=== PATIENT | male | born 1955 | race Caucasian/White ===

== ENCOUNTER 2017-11-01 15:39 | Inpatient (IN) | payer OTHER ==
[~2017-11-01] VITALS: Ht 172.7 cm; Wt 88.9 kg
--- NOTE | 2017-11-01 16:38 | ED AMS/SEIZURE/WEAK/DIZZY ---
See Addendum History of Present Illness General Chief Complaint: Altered Mental Status Stated Complaint: BIBA WITH AMS Source: EMS Exam Limitations: unable to give history, confusion Vital Signs & Intake/Output Vital Signs & Intake/Output Vital Signs Date Time Temp Pulse Resp B/P B/P Pulse O2 O2 Flow FiO2 Mean Ox Delivery Rate 11/01 2000 97.5 77 18 120/74 99 Room Air 11/01 1757 97.2 62 20 118/56 98 Room Air 11/01 1603 95.0 98 20 192/102 99 Room Air Allergies Coded Allergies: No Known Allergies (11/01/17) Triage Note: PT BIBA FROM [facility]. PT WAS FOUND WALKING WITHOUT SHOES AND DISORIENTED. PT REMAINED DISORIENTED TO SITUATION. PT ABLE TO STATE YEAR AND DATE BUT THOUGHT HE WAS AT HOSPITAL TO GET "PIZZA". PT ALSO STATED HE WANTED TO LEAVE BECAUSE HE WAS AT THE HOSPITAL FOR "HOURS" BUT WAS ONLY PRESENT FOR A FEW MINUTES. PT HYPERTENSIVE. PT'S SPEECH CLEAR AND APPROPRIATE. 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 Triage Nurses Notes Reviewed? yes Unable To Obtain Hx Due To: patient confusion HPI: 61-year-old male with past medical history of hypertension, opioid abuse brought in by EMS after he was found altered wandering around a grocery store with no shoes. Patient is A&O 3 however he remains confused about the days events and is fighting staff. He believes he has been in the hospital for a very long time and wants to go home. He reports that he lives with his mother in [place]. He gave me permission to contact her and a phone number which is not a current or valid phone number. He reports that he is on methadone 25 mg daily which he obtains from [facility]. 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 He also states that he takes metoprolol for hypertension but has not taken that medication either. Patient is clearly altered and history is unreliable at this time. Patient has not been seen in [facility] before and no prior records are able to be obtained at this time. (Basilio LUNDBERG,Bryanna) Reconcile Medications Aspirin/Acetaminophen/Caffeine (Excedrin Extra Strength Caplet) 250 MG-250 MG-65 MG TABLET HEADACHES (Reported) Bupropion HCl (Bupropion XL) 300 MG TAB.ER.24H 1 TAB PO DAILY MENTAL HEALTH ( Reported) Finasteride 5 MG TABLET 1 TAB PO DAILY PROSTATE (Reported) Metoprolol Succ XL (Toprol XL) 100 MG TAB.ER.24H 1 TAB PO DAILY HEART/BP ( Reported) Naproxen Sodium (Aleve) 220 MG TABLET PAIN/INFLAMMATION (Reported) Simethicone (Gas-X) 125 MG CAPSULE 1 CAP PO AD PRN GAS (Reported) Tamsulosin HCl (Flomax) 0.4 MG CAP.ER.24H 1 CAP PO DAILY /PROSTATE ( Reported) (Nii Atkins DO) Past History Travel History Traveled to [place] past 21 day No Medical History Neurological: NONE EENT: NONE Cardiovascular: hypertension Respiratory: NONE Gastrointestinal: NONE Hepatic: NONE Renal: NONE Musculoskeletal: NONE Psychiatric: substance abuse Endocrine: NONE Blood Disorders: NONE Cancer(s): NONE Psychosocial History Who do you live with Mother Services at Home None What is your primary language Frisian Tobacco Use: Quit >30 days ago ETOH Use: denies use Illicit Drug Use: denies illicit drug use Family History Hx Contributory? No (Bryanna Richmond MD) Medical History Any Pertinent Medical History? see below for history Surgical History Surgical History: unobtainable (Nii Atkins DO) Review of Systems Review of Systems Constitutional: Reports: no symptoms. EENTM: Reports: see HPI. Respiratory: Reports: see HPI. Cardiovascular: Reports: see HPI. GI: Reports: see HPI. Genitourinary: Reports: see HPI. Musculoskeletal: Reports: see HPI. Skin: Reports: see HPI. Neurological/Psychological: Reports: see HPI. (Bryanna Richmond MD) Physical Exam Physical Exam General Appearance: alert, awake, anxious, severe distress, obese, patient in four point restraints as he was agitated and unwilling to stay in bed or room. He would not follow commands of staff. Head: atraumatic, normal appearance Eyes: Bilateral: normal appearance. Neck: normal inspection, supple Respiratory: normal breath sounds, chest non-tender, no respiratory distress Cardiovascular: regular rate/rhythm Gastrointestinal: normal bowel sounds, soft, non-tender Extremities: pedal edema Skin: warm/dry (Bryanna Richmond MD) Core Measures ACS in differential dx? No CVA/TIA Diagnosis No Sepsis Present: No Sepsis Focused Exam Completed? No (Wilbert DO,Nii L.) Progress Differential Diagnosis: alcohol intoxication, dehydration, drug intoxication, hypoxia, intracranial Hem., UTI/pyelo Plan of Care: Orders Procedure Date/time Status Nothing by Mouth 11/02 B Active VRE ACTIVE SURVIELLANCE 11/01 2030 Active ACTIVE SURVEILLANCE NARES 11/01 2030 Active Pathway - chart 11/01 2025 Active House Staff 11/01 2025 Active Code Status 11/01 2025 Active Pathway - chart 11/01 195 Active Weight 11/01 194 Active Vital Signs 11/01 194 Active Turn and Reposition 11/01 1942 Active Teach/Educate 11/01 1942 Active Skin Integrity Protocol 11/01 1942 Active Skin/Pressure Ulcer Assess (Sk 11/01 1942 Active Precautions 11/01 1942 Active Pain Treatment and Response 11/01 1942 Active Nutritional Intake, Monitor 11/01 1942 Active Isolation 11/01 1942 Active CIWA 11/01 1942 Active Patient Care Conference 11/01 1942 Active Activity/Ambulation 11/01 194 Active SODIUM 11/01 192 Complete URINE DRUGS OF ABUSE 11/01 191 Complete Restraint- Discontinue 11/01 1900 Active Restraint- Behavioral (Order) 11/01 1817 Active Patient Data 11/01 1813 Active Add-on Test (ER Only) 11/01 1748 Active CULTURE,URINE 11/01 1748 Active URINE OSMOLALITY 11/01 1748 Complete URINE LYTES, SPOT 11/01 1748 Complete URINALYSIS 11/01 1748 Complete BLOOD CULTURE 11/01 1747 Active ED Holding Orders 11/01 1745 Active Admit to inpatient 11/01 1745 Active Vital Signs 11/01 1745 Active Code Status 11/01 1745 Complete Restraint- Behavioral (Order) 11/01 1637 Active ACETOMINOPHEN 11/01 1635 Complete TROPONIN LEVEL 11/01 1635 Complete SALICYLATE 11/01 1635 Complete ETHANOL 11/01 1635 Complete COMPREHENSIVE METABOLIC PANEL 11/01 1635 Complete CBC WITHOUT DIFFERENTIAL 11/01 1635 Complete EKG 11/01 1635 Active Intake & Output 11/01 1557 Active VTE Mechanical Prophylaxis 11/01 UNK Active Vital Signs 11/01 UNK Active Continuous Observation Monitor 11/01 UNK Active Current Medications Sig/Sheng Start time Last Medication Dose Stop Time Status Admin Sodium Chloride 1,000 ML .Q24H 11/01 2045 CAN (Normal Saline 0.9%) Sodium Chloride 1,000 ML .Q24H 11/01 2029 AC (Normal Saline 0.9%) Lorazepam 2 MG ONE ONE 11/01 1714 CAN (Ativan) 11/01 171 Laboratory Tests 11/01/17 1932: 11/01/171911: Urine Opiates Screen 2377.00 H, Methadone Screen > 735 H, Barbiturate Screen < 60, Ur Phencyclidine Scrn < 6.00, Amphetamines Screen < 100, U Benzodiazepines Scrn < 85, Urine Cocaine Screen < 50, Urine Cannabis Screen < 5.00, Urine Color YEL, Urine Clarity CLEAR, Urine pH 7.0, Ur Specific [place] 1.010, Urine Protein NEG, Urine Ketones TRACE H, Urine Nitrite NEG, Urine Bilirubin NEG, Urine Urobilinogen 0.2, Ur Leukocyte Esterase NEG, Ur Microscopic SEDIMENT EXAMINED, Urine RBC RARE, Urine WBC RARE, Ur Epithelial Cells RARE, Urine Mucus RARE, Urine Hemoglobin TRACE-INTACT H, Urine Glucose NEG 11/01/171911: Methadone Screen Cancelled, Barbiturate Screen Cancelled, Ur Phencyclidine Scrn Cancelled, Amphetamines Screen Cancelled, U Benzodiazepines Scrn Cancelled, Urine Cocaine Screen Cancelled, Urine Cannabis Screen Cancelled, Urine Osmolality 218 L, Ur Random Creatinine 30.7, Ur Random Sodium 30, Ur Random Potassium 24.9, Fraction Sodium Excret 0.5 11/01/17 1641: Anion Gap 11, Estimated GFR > 60, BUN/Creatinine Ratio 18.3, Glucose 96, Calcium 9.0, Total Bilirubin 1.6 H, AST 79 H, ALT 46, Alkaline Phosphatase 73, Troponin I < 0.01, Total Protein 6.9, Albumin 4.3, Globulin 2.6, Albumin/ Globulin Ratio 1.7, CBC w Diff NO MAN DIFF REQ, RBC 4.44 L, MCV 88.0, MCH 30.6, MCHC 34.8, RDW 12.7, MPV 8.3, Gran % 78.9 H, Lymphocytes % 11.6 L, Monocytes % 9.4 H, Eosinophils % 0, Basophils % 0.1, Absolute Granulocytes 13.8 H, Absolute Lymphocytes 2.0, Absolute Monocytes 1.6 H, Absolute Eosinophils 0, Absolute Basophils 0, Salicylates 3.0, Acetaminophen < 10.0 L, Serum Alcohol < 10.0 Microbiology 11/01 2029 UPPER RESP: Surveillance Culture - ORD 11/01 2029 GI: Surveillance Culture - ORD 11/01 191 URINE ROUT: Urine Culture - RECD 11/01 1800 BLOOD: Blood Culture - RECD 11/01 1746 BLOOD: Blood Culture - RECD Comments: 61 year old male found altered outside a grocery store barefoot. Will order the following: CBC, CMP, ASA level, Tylenol level, EKG, trop, Utox, Etoh level. Patient in 4 point restraints placed at 16:05. Will need to sedate to obtain CT head to rule out acute head injury. No contacts available or known at this time to obtain history. (Bryanna Richmond MD) Initial ED EKG: NSR (Nii Atkins DO) Departure Departure Condition: Stable Departure Forms: Customer Survey General Discharge Information (Basilio LUNDBERG,Bryanna) Departure Disposition: STILL A PATIENT Clinical Impression Primary Impression: Hyponatremia Secondary Impressions: Altered mental status Admission Note Spoke With: Raad LUNDBERG,Veronika Documentation of Exam: Documentation of any treatments & extenuating circumstances including Concerns Regarding Discharge (functional status, medication knowledge or non-compliance, living conditions, etc.) that warrant an admission rather than observation: [The patient needs admission for neurological evaluations every 4 hours, ICU level care, strict I's and O's, correction of hyponatremia, nephrology consultation. Nephrology was paged and informed that the patient was being admitted to the ICU. (Nii Atkins DO)
[2017-11-01 16:47] LABS: ABSOLUTE BASOPHIL COUNT 0 /CUMM (0.0-0.2); ABSOLUTE EOSINOPHIL COUNT 0 /CUMM (0.0-0.7); ABSOLUTE GRANULOCYTE CT 13.8 /CUMM (1.4-6.5); ABSOLUTE MONOCYTE COUNT 1.6 /CUMM (0.10-0.60); BASOPHIL % 0.1 % (0.0-2.0); EOSINOPHIL % 0 % (0-5); GRANULOCYTE % 78.9 % (42.2-75.2); HEMATOCRIT 39.1 % (42-52); MEAN CORPUSCULAR HGB 30.6 PG (27.0-31.0); MEAN CORPUSCULAR HGB CONC 34.8 G/DL (33.0-37.0); MEAN PLATELET VOLUME 8.3 FL (7.4-10.4); PLATELET COUNT 347 /CUMM (130-400); RBC DISTRIBUTION WIDTH 12.7 % (11.5-14.5); RED BLOOD CELL CT 4.44 /CUMM (4.70-6.10); WHITE BLOOD CELL COUNT 17.5 /CUMM (4.8-10.8)
[2017-11-01] MEDS ORDERED: TOPROL XL100 M1 PO (17:38)
[2017-11-01] MEDS ORDERED: GAS-X125 MG PO (17:39)
[2017-11-01] MEDS ORDERED: FINASTERIDE5 M1 PO (17:39)
[2017-11-01] MEDS ORDERED: ALEVE220 M2 PO (17:40)
[2017-11-01] MEDS ORDERED: BUPROPION XL300 M1 PO (17:40)
[2017-11-01] MEDS ORDERED: EXCEDRIN EXTRA1 EACH PO (17:41)
[2017-11-01] MEDS ORDERED: FLOMAX0.4 M1 PO (17:42)
--- NOTE | 2017-11-01 18:26 | History & Physical ---
Agusto Gamboa 11/01/17 1825: General Information and HPI MD Statement: I have seen and personally examined FE WALTERS and documented this H&P. The patient is a 61 year old M who presented with a patient stated chief complaint of [altered mental status]. Source of Information: old records, EMS, ed staff Exam Limitations: unable to give history, poor historian History of Present Illness: 61-year-old gentleman past medical history significant for hypertension, opioid abuse brought in by ambulance after police was called when he was found wandering around a grocery store without any shoes on. Patient has not been seen in [facility] before and no prior records are able to be obtained at this time. On my interview interview patient was incomprehensible however was noted to be agitated as well. Allergies/Medications Allergies: Coded Allergies: No Known Allergies (11/01/17) Home Med list Aspirin/Acetaminophen/Caffeine (Excedrin Extra Strength Caplet) 250 MG-250 MG-65 MG TABLET HEADACHES (Reported) Bupropion HCl (Bupropion XL) 300 MG TAB.ER.24H 1 TAB PO DAILY MENTAL HEALTH ( Reported) Finasteride 5 MG TABLET 1 TAB PO DAILY PROSTATE (Reported) Metoprolol Succ XL (Toprol XL) 100 MG TAB.ER.24H 1 TAB PO DAILY HEART/BP ( Reported) Naproxen Sodium (Aleve) 220 MG TABLET PAIN/INFLAMMATION (Reported) Simethicone (Gas-X) 125 MG CAPSULE 1 CAP PO AD PRN GAS (Reported) Tamsulosin HCl (Flomax) 0.4 MG CAP.ER.24H 1 CAP PO DAILY /PROSTATE ( Reported) Compliance With Home Meds: UNKNOWN Past History Travel History Traveled to [place] past 21 day No Medical History Neurological: NONE EENT: NONE Cardiovascular: hypertension Respiratory: NONE Gastrointestinal: NONE Hepatic: NONE Renal: NONE Musculoskeletal: NONE Psychiatric: substance abuse Endocrine: NONE Blood Disorders: NONE Cancer(s): NONE Surgical History Surgical History: unobtainable Past Family/Social History Psychosocial History Services at Home: None ETOH Use: denies use Illicit Drug Use: denies illicit drug use Review of Systems Review of Systems Constitutional: Denies: see HPI. Exam & Diagnostic Data Last 24 Hrs of Vital Signs/I&O Vital Signs Date Time Temp Pulse Resp B/P B/P Pulse O2 O2 Flow FiO2 Mean Ox Delivery Rate 11/01 2000 97.5 77 18 120/74 99 Room Air 11/01 1757 97.2 62 20 118/56 98 Room Air 11/01 1603 95.0 98 20 192/102 99 Room Air Intake & Output 11/01 1600 11/01 0800 11/01 0000 Intake Total Output Total Balance Patient 220 lb Weight Physical Exam General Appearance Mild Distress, uncooperative, unkept Skin bruising noted on arms, ? track nelson on right cubital area HEENT PERRLA, Mucous Membr. moist/pink, small pupils Lymphatic Cervical nl Cardiovascular Regular Rate, Normal S1, Normal S2 Lungs Normal Air Movement Abdomen Normal Bowel Sounds, Soft, No Tenderness Extremities No Edema Last 24 Hrs of Labs/Danish: Laboratory Tests 11/01/171931: 11/01/171911: Urine Opiates Screen 2377.00 H, Methadone Screen > 735 H, Barbiturate Screen < 60, Ur Phencyclidine Scrn < 6.00, Amphetamines Screen < 100, U Benzodiazepines Scrn < 85, Urine Cocaine Screen < 50, Urine Cannabis Screen < 5.00, Urine Color YEL, Urine Clarity CLEAR, Urine pH 7.0, Ur Specific [place] 1.010, Urine Protein NEG, Urine Ketones TRACE H, Urine Nitrite NEG, Urine Bilirubin NEG, Urine Urobilinogen 0.2, Ur Leukocyte Esterase NEG, Ur Microscopic SEDIMENT EXAMINED, Urine RBC RARE, Urine WBC RARE, Ur Epithelial Cells RARE, Urine Mucus RARE, Urine Hemoglobin TRACE-INTACT H, Urine Glucose NEG 11/01/171911: Methadone Screen Cancelled, Barbiturate Screen Cancelled, Ur Phencyclidine Scrn Cancelled, Amphetamines Screen Cancelled, U Benzodiazepines Scrn Cancelled, Urine Cocaine Screen Cancelled, Urine Cannabis Screen Cancelled, Urine Osmolality 218 L, Ur Random Creatinine 30.7, Ur Random Sodium 30, Ur Random Potassium 24.9, Fraction Sodium Excret 0.5 11/01/17 1641: Anion Gap 11, Estimated GFR > 60, BUN/Creatinine Ratio 18.3, Glucose 96, Calcium 9.0, Total Bilirubin 1.6 H, AST 79 H, ALT 46, Alkaline Phosphatase 73, Troponin I < 0.01, Total Protein 6.9, Albumin 4.3, Globulin 2.6, Albumin/ Globulin Ratio 1.7, CBC w Diff NO MAN DIFF REQ, RBC 4.44 L, MCV 88.0, MCH 30.6, MCHC 34.8, RDW 12.7, MPV 8.3, Gran % 78.9 H, Lymphocytes % 11.6 L, Monocytes % 9.4 H, Eosinophils % 0, Basophils % 0.1, Absolute Granulocytes 13.8 H, Absolute Lymphocytes 2.0, Absolute Monocytes 1.6 H, Absolute Eosinophils 0, Absolute Basophils 0, Salicylates 3.0, Acetaminophen < 10.0 L, Serum Alcohol < 10.0 Microbiology 11/01 2029 UPPER RESP: Surveillance Culture - ORD 11/01 2029 GI: Surveillance Culture - ORD 11/01 191 URINE ROUT: Urine Culture - RECD 11/01 1799 BLOOD: Blood Culture - RECD 11/01 1745 BLOOD: Blood Culture - RECD Diagnostic Data EKG Results NSR HR 64, QTc 454 type 1 HB CXR Results SERVICE DATE: 11/01/17 EXAM TYPE: RAD - XRY-PORTABLE CHEST XRAY FINDINGS: Both lungs are well-expanded and clear of acute process. The heart size and pulmonary vascularity is normal. No gross bony abnormality seen. IMPRESSION: Unremarkable chest exam. Other Results SERVICE DATE: 11/01/17 EXAM TYPE: CAT - CT HEAD WO IV CONTRAST FINDINGS: There is no acute intracranial hemorrhage or abnormal extra-axial collection. No intracranial mass effect or midline shift. Lateral and third ventricles are proportionate to the subarachnoid spaces. No hydrocephalus. Escalante-white matter differentiation is grossly preserved and there is no evidence of acute territorial infarct. The calvarium and skull base are intact. Mastoid air cells and middle ear cavities are well aerated. Visualized paranasal sinuses are well aerated. IMPRESSION: Unremarkable brain MRI. No evidence acute territorial infarct or hemorrhage. Assessment/Plan Assessment: 61-year-old gentleman past medical history significant for hypertension, substance abuse disorder on methadone brought in altered by police. In ED was found to be hyponatremic to 118 with leukocytosis of 17.5 with no bandemia. UA clear. U tox significant for opioids and methadone. CT head shows no acute intracranial hemorrhage or abnormal extra-axial collection. No intracranial mass effect or midline shift. Chest x-ray unremarkable Problem list: hypotonic Hyponatremia Altered mental status Leukocytosis, unclear etiology likely reactive, currently afebrile Substance abuse disorder Plan: Admit to ICU, vitals per protocol will try to increase sodium by 0.5 mL/h (4-6/3 hours) Keep n.p.o. for now holding all his medications, please reassess in the morning There is no next of kin contact for him in our system Initially wanted to start the patient on hypertonic solution. However patient got normal saline in the ED his sodium corrected to 122. Will start normal saline KVO, once he is more awake will place him on 800 mL fluid restriction Clinically looks euvolemic, serum osmolality 259, with low urine osmolality 218 , urine sodium 30, feNa of 0.5, hypouricemia, hypotonic hyponatremia likely secondary to SIADH ,review of his medications show no clear culprit. There has been some case reports of bupropion causing hyponatremia. Will hold all medications for now, please confirm his medications in the morning Regarding his leukocytosis patient is afebrile right now will follow up with antibiotics if he spikes a fever will cover him empirically. DVT prophylaxis subcu Lovenox Patient is full code please reassess CODE STATUS when he is more awake As Ranked By This Provider Problem List: 1. Hyponatremia 2. Altered mental status Core Measures/Misc (11/05) Acute Coronary Syndrome ACS Diagnosis: No Congestive Heart Failure Congestive Heart Failure Diagnosis No Cerebrovascular Accident CVA/TIA Diagnosis: No VTE (View Protocol) VTE Risk Factors Acute Medical Illness No Mechanical VTE Prophylaxis d/t N/A MechProphylax Ordered No VTE Pharm Prophylaxis d/t NA PharmProphylax ordered Sepsis (View protocol) Sepsis Present: No If YES complete Sepsis Event Note If YES complete Sepsis Event Note Jen LUNDBERG,Abigail Cat 11/01/17 1852: Core Measures/Misc (11/05) Sepsis (View protocol) If YES complete Sepsis Event Note If YES complete Sepsis Event Note Attending MD Review Statement Attending Statement Attending MD Statement: examined this patient, discuss w/resident/PA/DEPUTY SHERIFF CUSTODY, agreed w/resident/PA/DEPUTY SHERIFF CUSTODY, reviewed EMR data (avail), reviewed images, amended to note Attending Assessment/Plan: Briefly, the patient is a 61-year-old male with past medical history significant for hypertension and opioid abuse. The patient was brought in by EMS after he was found altered wandering in a store with no shoes. The patient was agitated in the ED and required restraints. In the ED, the patient was not able to give a clear history. It was reported that he takes methadone 25 mg daily which he obtains from a [facility] but had not gone to take his medication today. He also takes metoprolol for hypertension but had not taken that medication either. The patient was further evaluated in the emergency room, noting he had a white blood cell count of 17,000 and a serum sodium of 118. His total bilirubin was 1.6. The patient was initially hypertensive which readily improved. The patient was very agitated and required restraint, noting he was given Ativan and Benadryl with improvement in his agitation. A chest x-ray was done and was unremarkable. The patient's case was discussed with nephrology. He is currently receiving hypertonic saline. The cause of his hyponatremia remains unclear, and the complete workup as recommended by nephrology is pending. The patient has been planned cultured. A urinalysis has been ordered and is pending. We will start the patient on antibiotics if there is any source of infection identified. Plan: * Hypertonic saline administration as recommended by nephrology. * Will replace serum sodium until PRODUCTION OPERATIONS INSPECTOR symptoms improve. * Electrolytes will be monitored every 4 hours, we will avoid rapid correction of sodium. * Follow-up urinalysis results. * Follow-up cultures. * Will start empiric antibiotics if the urinalysis is abnormal or if there is any evidence of infection. * Check a right upper quadrant ultrasound. * Please ensure the toxicology screen is completed. * Check a head CT if able. * Check a prolactin level. * Monitor for seizure activity/neurological events. * DVT prophylaxis with Venodyne's at all times until head CT is checked. * Monitor closely in the critical care unit. * I discussed the plan of care with the housestaff in detail.
--- NOTE | 2017-11-01 18:31 | RADIOLOGY REPORT ---
EXAMINATION: XR PORTABLE CHEST CLINICAL INFORMATION: AMS. COMPARISON: None TECHNIQUE: Portable frontal view of the chest was obtained. FINDINGS: Both lungs are well-expanded and clear of acute process. The heart size and pulmonary vascularity is normal. No gross bony abnormality seen. IMPRESSION: Unremarkable chest exam.
--- NOTE | 2017-11-01 19:15 | CT SCAN REPORT ---
EXAMINATION: CT HEAD WITHOUT CONTRAST CLINICAL INFORMATION: Altered mental status. COMPARISON: No relevant prior imaging. TECHNIQUE: Contiguous axial imaging was performed from the skull base to vertex without intravenous administration of contrast. DLP: 1642.88 mGy-cm FINDINGS: There is no acute intracranial hemorrhage or abnormal extra-axial collection. No intracranial mass effect or midline shift. Lateral and third ventricles are proportionate to the subarachnoid spaces. No hydrocephalus. Escalante-white matter differentiation is grossly preserved and there is no evidence of acute territorial infarct. The calvarium and skull base are intact. Mastoid air cells and middle ear cavities are well aerated. Visualized paranasal sinuses are well aerated. IMPRESSION: Unremarkable brain MRI. No evidence acute territorial infarct or hemorrhage.
[2017-11-01 21:00] VITALS: BP 140/72
[2017-11-01 22:00] VITALS: BP 105/64
[2017-11-01 23:00] VITALS: BP 124/70
[2017-11-02] VITALS (8 sets, daily range): BP systolic 120–155; BP diastolic 64–82
[2017-11-02 05:45] LABS: ABSOLUTE BASOPHIL COUNT 0.1 /CUMM (0.0-0.2); ABSOLUTE EOSINOPHIL COUNT 0 /CUMM (0.0-0.7); ABSOLUTE GRANULOCYTE CT 8.1 /CUMM (1.4-6.5); ABSOLUTE LYMPH COUNT 1.9 /CUMM (1.2-3.4); ABSOLUTE MONOCYTE COUNT 1.5 /CUMM (0.10-0.60); BASOPHIL % 0.4 % (0.0-2.0); EOSINOPHIL % 0.2 % (0-5); GRANULOCYTE % 69.5 % (42.2-75.2); MEAN CORPUSCULAR HGB 30.5 PG (27.0-31.0); MEAN CORPUSCULAR HGB CONC 34.1 G/DL (33.0-37.0); MEAN CORPUSCULAR VOLUME 89.5 FL (80.0-94.0); MEAN PLATELET VOLUME 7.9 FL (7.4-10.4); PLATELET COUNT 303 /CUMM (130-400); RBC DISTRIBUTION WIDTH 12.9 % (11.5-14.5); RED BLOOD CELL CT 4.36 /CUMM (4.70-6.10); WHITE BLOOD CELL COUNT 11.7 /CUMM (4.8-10.8)
--- NOTE | 2017-11-02 07:37 | PN- Resident CRCU ---
Subjective HPI/CRCU Issues: Hyponatremia (118 on admission) s/p hypertonic saline 24 Hour Events: Overnight patient was agitated, attempted to leave; order #7 was called and patient was escorted back to bed, 1:1 sitter ordered. Was in restraints in ED, off restraints at this time. Patient has poor insight into diagnosis, continues to ask why he is here and saying he wants to leave. States that he was in [facility] in the beginning of the week for "appendicitis" although did not have an operation, was "unable to eat or drink anything" for two days and was discharged on Sunday without follow up or medications. States that last night he was in a hotel with his girlfriend and apparently she wanted pizza, so he went out in his boxers without shoes on to get pizza. Unsure as to why police found him rummaging through cars, states that "that never happened". Per discussion with nursing, patient states that "I was not rummaging through cars, I just got into the wrong subaru". Patient states that he feels as though his sodium is fine and continues to ask to leave, educated on risks of hyponatremia and states he will stay. His sodium has increased from 118-128, and was placed on D5W to avoid overcorrection. Objective Vital Signs & I&O Last 8 Hrs of Vitals and I&O: Intake & Output 11/02 0800 Intake Total 179 Output Total 1000 Balance -821 Intake, IV 59 Intake, Oral 120 Number 0 Bowel Movements Output, Urine 1000 Exam General Appearance: well developed/nourished, no apparent distress, alert, awake , comfortable Head: atraumatic Ears, Nose, Throat: normal pharynx Respiratory: normal breath sounds, lungs clear Cardiovascular: regular rate/rhythm, normal peripheral pulses Gastrointestinal: soft, non-tender Extremities: normal inspection Cranial Nerves: normal speech Skin: intact Skin Temp/Moisture Exam: Warm/Dry Sepsis Skin Exam (color): Normal for Ethnicity Current Medications: Current Medications Sig/Sheng Start time Last Medication Dose Route Stop Time Status Admin Dextrose/Water 1,000 ML Q8H 11/02 0730 AC 11/02 IV 0750 Diphenhydramine HCl 50 MG ONCE ONE 11/01 1730 DC 11/01 IM 11/01 1731 1732 Diphenhydramine HCl 0 .STK-MED ONE 11/01 1729 DC .ROUTE Lorazepam 2 MG ONE ONE 11/01 1730 DC 11/01 IV 11/01 1731 1732 Lorazepam 2 MG ONE ONE 11/01 1715 CAN IV 11/01 1716 Lorazepam 0 .STK-MED ONE 11/01 1713 DC .ROUTE Methadone HCl 25 MG DAILY 11/02 09 AC 11/02 PO 1000 Sodium Chloride 1,000 ML .Q24H 11/01 2045 CAN IV Sodium Chloride 1,000 ML .Q24H 11/01 2030 DC 11/01 IV 2100 Sodium Chloride 500 ML ONCE ONE 11/01 1845 DC 11/01 IV 11/02 0059 1945 Sodium Chloride 1,000 ML Q10H 11/01 1715 DC 11/01 IV 1732 Impression/Plan Impression/Problem List Impression: Mr Denise is a 61M with a PMH of polysubstance abuse on Methadone 25mg daily, HTN brought in by police in altered state, found to have sodium of 118 on admission and confusion and aggression, given these findings thought to be symptomatic hyponatremia and so brought to ICU for hypertonic saline administration, now with sodium of 128 on D5W to prevent overcorrection. Respiratory: stable -Stable on room air Infectious Disease: -Did have leukocytosis on admission trending down, afebrile, likely reactive -Will monitor off abx; cultures were drawn on admission -If febrile or symptomatic will start abx Cardiovascular/Circulation: stable -NSR+SB on monitor, blood pressures stable Hematological: stable -H/H 13.3/39.0 Metabolic: hypotonic hyponatremia -Sodium at 131 at 10:00am, D5W rate increased -Pending 2pm sodium, sodium q4 -Nephro recs appreciated -Mild transaminitis will monitor with ICU bundle, scheduled for RUQ ultrasound but cancelled due to patient eating; will plan on tomorrow AM potential NPO overnight -Tox positive for opiates, methadone, serum alcohol negative on admission -Restarted on his methadone dose 25mg, called [facility] in [place] and spoke with patients nurse who administers his dose; last dose was on the . Patient had claimed he was taking 45mg of methadone. -Per [place], patient has large amount of benzos prescribed (Lorazepam 2mg 120 pills for 30 days), will monitor for withdrawal Alimentary: -Regular diet, fluid restricted Neurologic: -Intact, on 1:1 sitter -Occasionally agitated, but has not been on restraints today -Psych consult placed given bizarre patient behavior and patient following outpatient psychiatrist, remea lyons Nephro: -Stable We are currently holding patient meds, will call patients pharmacy to confirm meds and restart tomorrow. DVT PPX IV access Full Code Problem List: 1. Hyponatremia 2. Altered mental status Pain Ratin Tomorrow's Labs & Rationales: CBC, BEP Plan DVT/Prophylaxis: mechanical
--- NOTE | 2017-11-02 09:03 | Admission Certification ---
Admission Certification Certification Statement - As attending physician, I certify that at the time of - admission, based on clinical presentation, severity of - symptoms, need for further diagnostic testing and - therapeutic interventions, and risk of adverse outcomes - without in-hospital treatment, in my clinical assessment, - this patient requires an acute hospital stay for a minimum - of two nights or longer. I have also considered psychsocial - factors such as support system, advanced age, financial - issues, cognitive issues, and failed out-patient treatments, - past re-admission history, safety of patient, and lack of - compliance as applicable. Specific rationale supporting this admission is: Acute mental status change and confusion, severe hyponatremia which requires hypertonic saline, IV fluid management, and careful electrolyte management. The patient will require ICU monitoring for his critical illness.
--- NOTE | 2017-11-02 09:15 | PN- CRCU ---
Abigail Li MD 11/02/17 0903: Subjective HPI/Critical Care Issues: The patient is awake and remains agitated. He is not restrained but requires a one-to-one sitter. He is angry and states he wants to go home. He is confabulating. He has told multiple stories about why he was admitted to the hospital. He cannot recall the details. He denies taking any prescribed or illicit drugs. The patient's respiratory status is stable noting he is on room air. He is hemodynamically stable as well and afebrile. The patient now has adequate oral intake. His serum sodium has increased from 118-128 this morning. He was changed over to D5W to prevent overcorrection of serum sodium levels. Objective Current Medications: Current Medications Sig/Sheng Start time Last Medication Dose Route Stop Time Status Admin Dextrose/Water 1,000 ML Q8H 11/02 0730 AC IV Diphenhydramine HCl 50 MG ONCE ONE 11/01 1730 DC 11/01 IM 11/01 1731 1732 Diphenhydramine HCl 0 .STK-MED ONE 11/01 1729 DC .ROUTE Lorazepam 2 MG ONE ONE 11/01 1730 DC 11/01 IV 11/01 1731 1732 Lorazepam 2 MG ONE ONE 11/01 1715 CAN IV 11/01 1716 Lorazepam 0 .STK-MED ONE 11/01 1713 DC .ROUTE Sodium Chloride 1,000 ML .Q24H 11/01 2045 CAN IV Sodium Chloride 1,000 ML .Q24H 11/01 2030 DC 11/01 IV 2100 Sodium Chloride 500 ML ONCE ONE 11/01 1845 DC 11/01 IV 11/02 0059 1945 Sodium Chloride 1,000 ML Q10H 11/01 1715 DC 11/01 IV 1732 Vital Signs & I&O Last 24 Hrs of Vitals and I&O: Vital Signs Date Time Temp Pulse Resp B/P B/P Pulse O2 O2 Flow FiO2 Mean Ox Delivery Rate 11/02 0600 83 20 120/76 11/02 0400 96.9 68 22 141/64 11/02 0000 96.2 56 21 124/70 11/02 0000 97 Room Air Room Air 11/01 2300 96.2 56 21 124/70 97 Room Air 11/01 2200 57 16 105/64 11/01 2100 96.9 62 22 140/72 11/01 2100 97 Room Air 11/01 2000 97.5 77 18 120/74 99 Room Air 11/01 1757 97.2 62 20 118/56 98 Room Air 11/01 1603 95.0 98 20 192/102 99 Room Air Intake & Output 11/02 1600 11/02 0800 11/02 0000 Intake Total 179 510 Output Total 1000 850 Balance -821 -340 Intake, IV 59 510 Intake, Oral 120 Number 0 0 Bowel Movements Output, Urine 1000 850 Patient 203 lb Weight Weight Bed scale Measurement Method Physical Exam General Appearance agitated, uncooperative Skin bruising noted on arms, ? track nelson on right cubital area HEENT PERRLA, Mucous Membr. moist/pink Lymphatic Cervical nl Cardiovascular Regular Rate, Normal S1, Normal S2 Lungs Normal Air Movement Abdomen Normal Bowel Sounds, Soft, No Tenderness Extremities No Edema Results Last 24 Hrs of Lab Results: Laboratory Tests 11/02/17 0519: Anion Gap 10, Estimated GFR > 60, Glucose 93, Calcium 8.8, Phosphorus 3.1, Magnesium 2.2, Total Bilirubin 1.3, AST 73 H, ALT 47, Albumin 3.9, CBC w Diff NO MAN DIFF REQ, RBC 4.36 L, MCV 89.5, MCH 30.5, MCHC 34.1, RDW 12.9, MPV 7.9, Gran % 69.5, Lymphocytes % 16.7 L, Monocytes % 13.2 H, Eosinophils % 0.2, Basophils % 0.4, Absolute Granulocytes 8.1 H, Absolute Lymphocytes 1.9, Absolute Monocytes 1.5 H, Absolute Eosinophils 0, Absolute Basophils 0.1 11/02/17 0017: Anion Gap 10, Estimated GFR > 60, Glucose 79, Calcium 8.9, Phosphorus 3.5, Magnesium 2.2, Total Bilirubin 1.6 H, AST 80 H, ALT 49, Albumin 3.9 11/01/17 1932: 11/01/17 1912: Urine Opiates Screen 2377.00 H, Methadone Screen > 735 H, Barbiturate Screen < 60, Ur Phencyclidine Scrn < 6.00, Amphetamines Screen < 100, U Benzodiazepines Scrn < 85, Urine Cocaine Screen < 50, Urine Cannabis Screen < 5.00, Urine Color YEL, Urine Clarity CLEAR, Urine pH 7.0, Ur Specific Calera 1.010, Urine Protein NEG, Urine Ketones TRACE H, Urine Nitrite NEG, Urine Bilirubin NEG, Urine Urobilinogen 0.2, Ur Leukocyte Esterase NEG, Ur Microscopic SEDIMENT EXAMINED, Urine RBC RARE, Urine WBC RARE, Ur Epithelial Cells RARE, Urine Mucus RARE, Urine Hemoglobin TRACE-INTACT H, Urine Glucose NEG 11/01/171911: Methadone Screen Cancelled, Barbiturate Screen Cancelled, Ur Phencyclidine Scrn Cancelled, Amphetamines Screen Cancelled, U Benzodiazepines Scrn Cancelled, Urine Cocaine Screen Cancelled, Urine Cannabis Screen Cancelled, Urine Osmolality 218 L, Ur Random Creatinine 30.7, Ur Random Sodium 30, Ur Random Potassium 24.9, Fraction Sodium Excret 0.5 11/01/17 164: Anion Gap 11, Estimated GFR > 60, BUN/Creatinine Ratio 18.3, Glucose 96, Serum Osmolality 259 L, Calcium 9.0, Total Bilirubin 1.6 H, Direct Bilirubin 0.3, AST 79 H, ALT 46, Alkaline Phosphatase 73, Troponin I < 0.01, Total Protein 6.9 , Albumin 4.3, Globulin 2.6, Albumin/Globulin Ratio 1.7, Prolactin 8.5, CBC w Diff NO MAN DIFF REQ, RBC 4.44 L, MCV 88.0, MCH 30.6, MCHC 34.8, RDW 12.7, MPV 8.3, Gran % 78.9 H, Lymphocytes % 11.6 L, Monocytes % 9.4 H, Eosinophils % 0, Basophils % 0.1, Absolute Granulocytes 13.8 H, Absolute Lymphocytes 2.0, Absolute Monocytes 1.6 H, Absolute Eosinophils 0, Absolute Basophils 0, Salicylates 3.0, Acetaminophen < 10.0 L, Serum Alcohol < 10.0 Impression/Plan Impression/Plan Impression/Plan: 1. Hypotonic hyponatremia, etiology unclear. 2. Acute delirium, change in mental status. 3. Leukocytosis, likely reactive. 4. Chronic pain, on methadone. 5. History of substance abuse. 6. Possible opiate/methadone intoxication. Recommendations: * Continue to monitor serum sodium closely. Avoid rapid overcorrection. * Continue D5W. * Will continue to discuss the case with nephrology. * Fluid restriction as ordered. * Restart home dose of methadone this morning. Will verify the dose with the patient's pain clinic. * Psychiatry consult requested. * DVT prophylaxis with subcu heparin. * Continue all supportive care. Jr Greenwood. 11/02/17922: Subjective HPI/Critical Care Issues: Overnight patient was agitated, attempted to leave; order #7 was called and patient was escorted back to bed, 1:1 sitter ordered. Was in restraints in ED, off restraints at this time. Patient has poor insight into diagnosis, continues to ask why he is here and saying he wants to leave. States that he was in [facility] in the beginning of the week for "appendicitis" although did not have an operation, was "unable to eat or drink anything" for two days and was discharged on Sunday without follow up or medications. States that last night he was in a hotel with his girlfriend and apparently she wanted pizza, so he went out in his boxers without shoes on to get pizza. Unsure as to why police found him rummaging through cars, states that "that never happened". Per discussion with nursing, patient states that "I was not rummaging through cars, I just got into the wrong subaru". Patient states that he feels as though his sodium is fine and continues to ask to leave, educated on risks of hyponatremia and states he will stay. His sodium has increased from 118-128, and was placed on D5W to avoid overcorrection. Objective Current Medications: Current Medications Sig/Sheng Start time Last Medication Dose Route Stop Time Status Admin Dextrose/Water 1,000 ML Q8H 11/02 0730 AC IV Diphenhydramine HCl 50 MG ONCE ONE 11/01 1730 DC 11/01 IM 11/01 1731 1732 Diphenhydramine HCl 0 .STK-MED ONE 11/01 1729 DC .ROUTE Lorazepam 2 MG ONE ONE 11/01 1730 DC 11/01 IV 11/01 1731 1732 Lorazepam 2 MG ONE ONE 11/01 1715 CAN IV 11/01 1716 Lorazepam 0 .STK-MED ONE 11/01 1713 DC .ROUTE Methadone HCl 25 MG DAILY 11/02 922 UNVr PO Sodium Chloride 1,000 ML .Q24H 11/01 2045 CAN IV Sodium Chloride 1,000 ML .Q24H 11/01 2030 DC 11/01 IV 2100 Sodium Chloride 500 ML ONCE ONE 11/01 1845 DC 11/01 IV 11/02 0059 1945 Sodium Chloride 1,000 ML Q10H 11/01 1715 DC 11/01 IV 1732 Vital Signs & I&O Last 24 Hrs of Vitals and I&O: Vital Signs Date Time Temp Pulse Resp B/P B/P Pulse O2 O2 Flow FiO2 Mean Ox Delivery Rate 11/02 1200 97.9 56 18 130/70 11/02 1200 97.9 56 18 130/70 99 Room Air 11/02 1000 97.0 66 22 136/81 11/02 0800 97.0 64 26 138/82 11/02 0800 97.0 64 26 138/82 96 Room Air 11/02 0600 83 20 120/76 11/02 0400 96.9 68 22 141/64 11/02 0000 96.2 56 21 124/70 11/02 0000 97 Room Air Room Air 11/01 2300 96.2 56 21 124/70 97 Room Air 11/01 2200 57 16 105/64 11/01 2100 96.9 62 22 140/72 11/01 2100 97 Room Air 11/01 2001 97.5 77 18 120/74 99 Room Air 11/01 1757 97.2 62 20 118/56 98 Room Air 11/01 1603 95.0 98 20 192/102 99 Room Air Intake & Output 11/02 1600 11/02 0800 11/02 0000 Intake Total 179 510 Output Total 1000 850 Balance -821 -340 Intake, IV 59 510 Intake, Oral 120 Number 0 0 Bowel Movements Output, Urine 1000 850 Patient 203 lb Weight Weight Bed scale Measurement Method Exam General Appearance: well developed/nourished, no apparent distress, alert, awake , anxious Head: atraumatic Respiratory: normal breath sounds, lungs clear Cardiovascular: regular rate/rhythm Abdomen: soft, non-tender Extremities: normal inspection, no edema Results Last 24 Hrs of Lab Results: Laboratory Tests 11/02/17 1200: Sodium Cancelled 11/02/17 1005: 11/02/17 0519: Anion Gap 10, Estimated GFR > 60, Glucose 93, Calcium 8.8, Phosphorus 3.1, Magnesium 2.2, Total Bilirubin 1.3, AST 73 H, ALT 47, Albumin 3.9, CBC w Diff NO MAN DIFF REQ, RBC 4.36 L, MCV 89.5, MCH 30.5, MCHC 34.1, RDW 12.9, MPV 7.9, Gran % 69.5, Lymphocytes % 16.7 L, Monocytes % 13.2 H, Eosinophils % 0.2, Basophils % 0.4, Absolute Granulocytes 8.1 H, Absolute Lymphocytes 1.9, Absolute Monocytes 1.5 H, Absolute Eosinophils 0, Absolute Basophils 0.1 11/02/17 0017: Anion Gap 10, Estimated GFR > 60, Glucose 79, Calcium 8.9, Phosphorus 3.5, Magnesium 2.2, Total Bilirubin 1.6 H, AST 80 H, ALT 49, Albumin 3.9 11/01/171931: 11/01/171911: Urine Opiates Screen 2377.00 H, Methadone Screen > 735 H, Barbiturate Screen < 60, Ur Phencyclidine Scrn < 6.00, Amphetamines Screen < 100, U Benzodiazepines Scrn < 85, Urine Cocaine Screen < 50, Urine Cannabis Screen < 5.00, Urine Color YEL, Urine Clarity CLEAR, Urine pH 7.0, Ur Specific Calera 1.010, Urine Protein NEG, Urine Ketones TRACE H, Urine Nitrite NEG, Urine Bilirubin NEG, Urine Urobilinogen 0.2, Ur Leukocyte Esterase NEG, Ur Microscopic SEDIMENT EXAMINED, Urine RBC RARE, Urine WBC RARE, Ur Epithelial Cells RARE, Urine Mucus RARE, Urine Hemoglobin TRACE-INTACT H, Urine Glucose NEG 11/01/171911: Methadone Screen Cancelled, Barbiturate Screen Cancelled, Ur Phencyclidine Scrn Cancelled, Amphetamines Screen Cancelled, U Benzodiazepines Scrn Cancelled, Urine Cocaine Screen Cancelled, Urine Cannabis Screen Cancelled, Urine Osmolality 218 L, Ur Random Creatinine 30.7, Ur Random Sodium 30, Ur Random Potassium 24.9, Fraction Sodium Excret 0.5 11/01/17 1641: Anion Gap 11, Estimated GFR > 60, BUN/Creatinine Ratio 18.3, Glucose 96, Serum Osmolality 259 L, Calcium 9.0, Total Bilirubin 1.6 H, Direct Bilirubin 0.3, AST 79 H, ALT 46, Alkaline Phosphatase 73, Troponin I < 0.01, Total Protein 6.9 , Albumin 4.3, Globulin 2.6, Albumin/Globulin Ratio 1.7, Prolactin 8.5, CBC w Diff NO MAN DIFF REQ, RBC 4.44 L, MCV 88.0, MCH 30.6, MCHC 34.8, RDW 12.7, MPV 8.3, Gran % 78.9 H, Lymphocytes % 11.6 L, Monocytes % 9.4 H, Eosinophils % 0, Basophils % 0.1, Absolute Granulocytes 13.8 H, Absolute Lymphocytes 2.0, Absolute Monocytes 1.6 H, Absolute Eosinophils 0, Absolute Basophils 0, Salicylates 3.0, Acetaminophen < 10.0 L, Serum Alcohol < 10.0 Impression/Plan Impression/Plan Impression/Plan: Mr Denise is a 61M with a PMH of polysubstance abuse on Methadone 25mg daily, HTN brought in by police in altered state, found to have sodium of 118 on admission and confusion and aggression, given these findings thought to be symptomatic hyponatremia and so brought to ICU for hypertonic saline administration, now with sodium of 128 on D5W to prevent overcorrection. Respiratory: stable -Stable on room air Infectious Disease: -Did have leukocytosis on admission trending down, afebrile, likely reactive -Will monitor off abx; cultures were drawn on admission -If febrile or symptomatic will start abx Cardiovascular/Circulation: stable -NSR+SB on monitor, blood pressures stable Hematological: stable -H/H 13.3/39.0 Metabolic: hypotonic hyponatremia -Sodium at 131 at 10:00am, D5W rate increased -Pending 2pm sodium, sodium q4 -Nephro recs appreciated -Mild transaminitis will monitor with ICU bundle, scheduled for RUQ ultrasound but cancelled due to patient eating; will plan on tomorrow AM potential NPO overnight -Tox positive for opiates, methadone, serum alcohol negative on admission -Restarted on his methadone dose 25mg, called [facility] in [place] and spoke with patients nurse who administers his dose; last dose was on the . Patient had claimed he was taking 45mg of methadone. -Per [place]MP, patient has large amount of benzos prescribed (Lorazepam 2mg 120 pills for 30 days), will monitor for withdrawal Alimentary: -Regular diet, fluid restricted Neurologic: -Intact, on 1:1 sitter -Occasionally agitated, but has not been on restraints today -Psych consult placed given bizarre patient behavior and patient following outpatient psychiatrist, appreciate recs Nephro: -Stable We are currently holding patient meds, will call patients pharmacy to confirm meds and restart tomorrow. DVT PPX IV access Full Code
--- NOTE | 2017-11-02 16:51 | Cons- Nephrology ---
General Information and HPI Consulting Request Date of Consult: 11/02/17 Requested By: Abigail Li MD Reason for Consult: Hyponatremia Source of Information: patient Exam Limitations: no limitations History of Present Illness: I have been asked to see this 61-year-old man because of hyponatremia. He has a background that includes hypertension and opioid abuse, and was brought in yesterday by ambulance after being found wandering around a grocery store while not wearing any shoes. He was admitted because of altered mental status that included agitation and confusion in the setting of severe hyponatremia with a serum sodium of 118. He was treated with hypertonic saline and over the next 13 hours his serum sodium matthew to 128. He was then given IV D5W and subsequent serum sodium levels were 131 and then 130. In the interim his mental status markedly improved although he remains a rather poor historian. On reviewing his outpatient medications, he was on bupropion 300 mg daily, methadone and occasional naproxen. He was on no other medications known to cause hyponatremia , and he denies nausea, vomiting, diarrhea, headache or visual symptoms. He also denies ingesting a large amount of liquids on any regular basis. Finally, he claims that he eats a regular, normal diet. 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, denies alcohol or IV drug abuse Allergies/Medications Allergies: Coded Allergies: No Known Allergies (11/01/17) Home Med List: Aspirin/Acetaminophen/Caffeine (Excedrin Extra Strength Caplet) 250 MG-250 MG-65 MG TABLET HEADACHES (Reported) Bupropion HCl (Bupropion XL) 300 MG TAB.ER.24H 1 TAB PO DAILY MENTAL HEALTH ( Reported) Finasteride 5 MG TABLET 1 TAB PO DAILY PROSTATE (Reported) Metoprolol Succ XL (Toprol XL) 100 MG TAB.ER.24H 1 TAB PO DAILY HEART/BP ( Reported) Naproxen Sodium (Aleve) 220 MG TABLET PAIN/INFLAMMATION (Reported) Simethicone (Gas-X) 125 MG CAPSULE 1 CAP PO AD PRN GAS (Reported) Tamsulosin HCl (Flomax) 0.4 MG CAP.ER.24H 1 CAP PO DAILY /PROSTATE ( Reported) Review of Systems Review of Systems: Gen.: Appetite had been good, no unexplained weight loss or weight gain Skin: No rash or jaundice HEENT: No visual or hearing disturbances, no discharge Cardiopulmonary: No shortness of breath, cough, chest pain, orthopnea GI: No nausea, vomiting, abdominal pain, diarrhea : No dysuria, hematuria or other symptoms referable to the urinary tract Musculoskeletal: No arthralgias, arthritis, myalgias, weakness Neuro: See HPI Past History Travel History Traveled to [place] past 21 day No Medical History Neurological: NONE EENT: NONE Cardiovascular: hypertension Respiratory: NONE Gastrointestinal: NONE Hepatic: NONE Renal: NONE Musculoskeletal: NONE Psychiatric: substance abuse Endocrine: NONE Blood Disorders: NONE Cancer(s): NONE Surgical History Surgical History: unobtainable Psychosocial History Where Do You Live? Home Services at Home: None Smoking Status: Unknown If Ever Smoked ETOH Use: denies use Illicit Drug Use: denies illicit drug use Exam & Diagnostic Data Vital Signs and I&O Vital Signs Date Time Temp Pulse Resp B/P B/P Pulse O2 O2 Flow FiO2 Mean Ox Delivery Rate 11/02 1200 97.9 56 18 130/70 11/02 1200 97.9 56 18 130/70 99 Room Air 11/02 1000 97.0 66 22 136/81 11/02 0800 97.0 64 26 138/82 11/02 0800 97.0 64 26 138/82 96 Room Air 11/02 0600 83 20 120/76 11/02 0400 96.9 68 22 141/64 11/02 0000 96.2 56 21 124/70 11/02 0000 97 Room Air Room Air 11/01 2300 96.2 56 21 124/70 97 Room Air 11/01 2200 57 16 105/64 11/01 2100 96.9 62 22 140/72 11/01 2100 97 Room Air 11/01 2001 97.5 77 18 120/74 99 Room Air 11/01 1757 97.2 62 20 118/56 98 Room Air Intake & Output 11/02 1600 11/02 0400 11/01 1600 11/01 0400 10/31 1600 10/31 0400 Intake Total 179 510 Output Total 1000 850 Balance -821 -340 Intake, IV 59 510 Intake, Oral 120 Number 0 0 Bowel Movements Output, Urine 1000 850 Patient 203 lb 220 lb Weight Weight Bed scale Measurement Method Physical Exam: General: Well-developed white male in NAD Skin: No rash or jaundice HEENT: Conjunctivae pink, sclerae anicteric, mucous membranes moist Neck: Without masses or thyromegaly, no supraclavicular or cervical adenopathy Chest: Clear to P&A Heart: Regular rate and rhythm without S3 or rub Abdomen: Obese, soft and nontender without palpable masses or organomegaly Extremities: Without cyanosis or edema Neuro: Appears to be cognitively intact, no focal findings, no asterixis or myoclonus Assessment/Plan Assessment/Recommendations Assessment: 61-year-old man with no available previous medical records other than a history of hypertension and opioid abuse, now comes in with altered mental status of unknown duration associated with severe hyponatremia (118). Serum sodium has come up slightly more quickly than one would have hoped -by about 10 mEq/L over 12 -13 hours but now seems to have stabilized at about 130 after administration of IV D5W. Neurologic status has improved significantly and I suspect that he is now at his baseline. The etiology of the hyponatremia is not entirely certain for the moment but bupropion has been associated with hyponatremia/ SIADH. I am not absolutely convinced that there is not an element of psychogenic polydipsia. Recommendations: 1. Check TFTs, a.m. cortisol level, serum uric acid (please add to earlier blood work) 2. Can decrease infusion of IV D5W with plan to ultimately stop IV fluids late this evening but continue him on a p.o. fluid limit of 1,000 cc per day 3. Psych evaluation 4. If possible, try to obtain any previous laboratory records as well as information from the brother that he lives with regarding his baseline medical and mental status Thank you. We will follow along with you.
--- NOTE | 2017-11-02 20:17 | Cons- Psychiatry ---
Psychiatric Consult Date of Consult: 11/02/17 Reason for Consult: capacity Allergies: Coded Allergies: No Known Allergies (11/01/17) Past History Past Medical History Neurological: NONE EENT: NONE Cardiovascular: hypertension Respiratory: NONE Gastrointestinal: NONE Hepatic: NONE Renal: NONE Musculoskeletal: NONE Psychiatric: substance abuse Endocrine: NONE Blood Disorders: NONE Cancer(s): NONE Past Surgical History Surgical History: unobtainable Assessment/Plan Impression: From chart. 61-year-old gentleman past medical history significant for hypertension, substance abuse disorder on methadone brought in altered by police. In ED was found to be hyponatremic to 118 with leukocytosis of 17.5 with no bandemia. UA clear. U tox significant for opioids and methadone. CT head shows no acute intracranial hemorrhage or abnormal extra-axial collection. No intracranial mass effect or midline shift. Chest x-ray unremarkable. Pt was found in parking lot rummaging through cars in no shoes. Altered mental status in ED. On exam pt is lying flat looking uncomfortable. He is perseverative with answers ; I'll be ok Ill be OK. Speech is mildly encephalopathic, sometimes clear answers to short questions, otherwise is not making clear sense. He is not able to process information properly or make informed decisions. His attention is impaired on months backwards, oriented to person place year month not day. Knows Suzette Steele. Any other more compliacted questions cause him to stare off or make non-sensical answers. Insight absent judgment poor. IMP Delirium Unclear contribution of ?BZD withdrawal, vitals have been somewhat labile but mostly stable. 1. Delirium is driven by a direct physiologic consequence of a general medical condition, and with treatment of baseline medical issues delirious symptoms are likely to improve. Unfortunately, if not resolved within a short period of time delirium is likely to prolong recovery, prolong hospital stay, increase mortality rate. Continued aggressive identification and treatment of the conditions that triggered the delirious state is the definitive treatment. In his case, the hyponatremia is the most likely cause but pt on methadone with high doses of benzo and may have abruptly stopped benzo. His history is unclear due to altered mental status. Need collateral. Wellbutrin very rarely causes hyponatremia. 2. A low-dose antipsychotic can be used for agitation. Please check EKG and monitor QTc while patient is receiving antipsychotic medications. Replete K and Mg as needed. Monitor for development of dystonia or extrapyramidal symptoms and ise 1 mg cogentin if he develops EPS. 3. CIWA for possible GABAergic withdrawal; per ctpmp on 2 mg ativan QID. Keep in mind his CIWA is scored on mostly subjective distress which he may not be able to express given his mental status. Watch vitals carefully and be aware even vitals may not be indicative of withdrawal if he is on antihypertensive. 4. Avoid anticholinergic drugs to the extent possible. Seroquel is anticholinergic in part, would avoid. 5. Non pharmacologic evidence based treatment includes repeated reorientation, promotion of good sleep hygiene, room with window, early mobilization, correction of dehydration, use of sensory aids (glasses, hearing aids), familiar faces (family, primary nurse) and the minimization of unnecessary noise and stimuli. He has done well with sitter would keep to avoid complications of management of agitation. 6. Due to patient having impaired capacity to make informed decision regarding certain aspects of medical care would recommend identifying surrogate decision maker. He cannot leave hospital AMA. 7. If there are any concerns for patient's safety, keep sitter until mental status clears. Be sure to reassess before d/c due to waxing and waning nature of delirium. 8. Continue to address medical issues, including monitoring of appropriate lab values vital signs, as you are. 9. Get records from [facility] / [place]. Call on-call psych with any further issues. JScruggsMD
--- NOTE | 2017-11-02 21:00 | Event Note ---
Event Note Event Note: Prince apparently is estranged from his brother, he does not know his contact information Patient's therapist is Daniella, located in [place] ph:
[2017-11-03] VITALS (8 sets, daily range): BP systolic 128–148; BP diastolic 76–86
[2017-11-03 04:42] LABS: ABSOLUTE BASOPHIL COUNT 0.1 /CUMM (0.0-0.2); ABSOLUTE EOSINOPHIL COUNT 0.1 /CUMM (0.0-0.7); ABSOLUTE GRANULOCYTE CT 8.6 /CUMM (1.4-6.5); ABSOLUTE MONOCYTE COUNT 1.6 /CUMM (0.10-0.60); BASOPHIL % 0.5 % (0.0-2.0); EOSINOPHIL % 0.5 % (0-5); GRANULOCYTE % 64.5 % (42.2-75.2); HEMATOCRIT 40.3 % (42-52); MEAN CORPUSCULAR HGB 30.6 PG (27.0-31.0); MEAN CORPUSCULAR HGB CONC 33.7 G/DL (33.0-37.0); MEAN CORPUSCULAR VOLUME 90.9 FL (80.0-94.0); MEAN PLATELET VOLUME 8.5 FL (7.4-10.4); PLATELET COUNT 291 /CUMM (130-400); RBC DISTRIBUTION WIDTH 13.5 % (11.5-14.5); RED BLOOD CELL CT 4.43 /CUMM (4.70-6.10); WHITE BLOOD CELL COUNT 13.3 /CUMM (4.8-10.8)
--- NOTE | 2017-11-03 08:02 | PN- Resident CRCU ---
Jr Greenwood 11/03/17 0801: Subjective HPI/CRCU Issues: Hyponatremia s/p hypertonic saline admin Opioid dependence on methadone 24 Hour Events: No acute events overnight. Today patient is much more calm, no agitation. Patient states that he feels as though he was not eating enough over this week which is why his sodium was low. Patient states that he feels much better today. Patient is asking if he can walk around today. Denies fevers/chills/ night sweats/chest pain/abdominal pain/urinary symptoms/lower extremity edema Objective Vital Signs & I&O Last 8 Hrs of Vitals and I&O: Asymptomatic bradycardia, vitally stable otherwise Exam General Appearance: well developed/nourished, no apparent distress, alert, awake , comfortable Head: atraumatic Respiratory: normal breath sounds, lungs clear Cardiovascular: bradycardia Gastrointestinal: soft, non-tender Extremities: normal inspection, no edema Cranial Nerves: normal hearing, normal speech Skin: intact Skin Temp/Moisture Exam: Warm/Dry Current Medications: Current Medications Sig/Sheng Start time Last Medication Dose Route Stop Time Status Admin Acetaminophen 650 MG Q6P PRN 11/02 1615 AC PO Bupropion HCl 300 MG DAILY 11/03 0900 AC 11/03 PO 0815 Dextrose/Water 1,000 ML Q8H 11/02 0730 DC 11/02 IV 1514 Haloperidol 0.5 MG FOUR TIMES A DAY PRN 11/03 1030 AC PO Methadone HCl 25 MG DAILY 11/02 0923 AC 11/03 PO 0816 Metoprolol Succinate 100 MG DAILY 11/03 0900 AC 11/03 PO 0815 Tamsulosin HCl 0.4 MG DAILY 11/03 0900 AC 11/03 PO 0815 Impression/Plan Impression/Problem List Impression: Mr Denise is a 61M with a PMH of polysubstance abuse on Methadone 25mg daily, HTN brought in by police in altered state, found to have sodium of 118 on admission and confusion and aggression, given these findings thought to be symptomatic hyponatremia and so brought to ICU for hypertonic saline administration, now with sodium of 131 s/p D5W to prevent overcorrection. He stable and can be transferred to telemetry. Respiratory: stable -Stable on room air Infectious Disease: -Did have leukocytosis on admission trending down, afebrile, likely reactive -Will monitor off abx; cultures were drawn on admission -If febrile or symptomatic will start abx Cardiovascular/Circulation: stable -NSR+SB on monitor, blood pressures stable Hematological: stable -H/H 13.6/40.3 Metabolic: hypotonic hyponatremia -Sodium at 131, off d5w -Nephro recs appreciated -Tox positive for opiates, methadone, serum alcohol negative on admission -Restarted on his methadone dose 25mg, called [facility] in [place] and spoke with patients nurse who administers his dose; last dose was on the . Patient had claimed he was taking 45mg of methadone. -Per [place]PMP, patient has large amount of benzos prescribed (Lorazepam 2mg 120 pills for 30 days), will monitor for withdrawal Alimentary: -Regular diet, fluid restricted to 1000 cc Neurologic: -Intact, on 1:1 sitter -Occasionally agitated, but has not been on restraints today -Psych consult placed given bizarre patient behavior and patient following outpatient psychiatrist, appreciate recs low-dose antipsychotics if patient is agitated, QTC is within normal limits. Nephro: -Stable Restarted patient's home meds. DVT PPX IV access Full Code Problem List: 1. Hyponatremia Pain Ratin Tomorrow's Labs & Rationales: CBCs, BEP Plan DVT/Prophylaxis: Escobar Baeza MD 11/03/17 1019: Attending MD Review Statement Attending Sign Off Attending Cosign Statement: I have: examined this patient, reviewed al EMR data, personally reviewd images, discussd w/resident/PA/SHEARING SUPERVISOR, discussed mgmt plan w/roger, discussed mgmt plan w/CM, discussed mgmt plan w/pt, agreed w/resident/PA/SHEARING SUPERVISOR, amended to note. Other Findings: Impression 61 year old man * hyponatremia - unclear etiology, concern for medication induced (bupropion) vs. SIADH * depression * htn * history of opiate dependence - methadone program Plan Respiratory -no active issues -cxr unremarkable ID -mild leukocytosis -tmax 98.2 -cultures are negative -currently not on antibiotics -will monitor CVS -monitor hemodynamics Heme -monitor cbc's Metabolic -monitor ins/outs -nephrology appreciated -1000cc fluid restriction -s/p hypertonic saline Alimentary -diet -1000cc restriction Neuro -psychiatry appreciated -patient is not to leave AMA per psychiatry -continue methadone DVT prophylaxis at all times Attending time spent 35 min
--- NOTE | 2017-11-03 12:26 | Transfer of Care Summary ---
Hospital Course Course Hospital Course: 61-year-old gentleman past medical history significant for hypertension, opioid abuse brought in by ambulance after police was called when he was found wandering around a grocery store without any shoes on. In ED was found to be hyponatremic to 118 with leukocytosis of 17.5 with no bandemia. UA clear. U tox significant for opioids and methadone. CT head shows no acute intracranial hemorrhage or abnormal extra-axial collection. No intracranial mass effect or midline shift. Chest x-ray unremarkable He was admitted to ICU for hypertonic saline administration given altered mental status and low sodium. Overnight patient was agitated, attempted to leave; order #7 was called and patient was escorted back to bed, 1:1 sitter ordered. Was in restraints in ED, off restraints HD#2. Patient has poor insight into diagnosis, continued to ask why he is here and saying he wanted to leave. States that he was in [facility] in the beginning of the week for "appendicitis" although did not have an operation, was "unable to eat or drink anything" for two days and was discharged on Sunday without follow up or medications. States that prior to admission he was in a hotel with his girlfriend and apparently she wanted pizza, so he went out in his boxers without shoes on to get pizza. Unsure as to why police found him rummaging through cars, states that "that never happened". However, Per discussion with nursing, patient states that "I was not rummaging through cars, I just got into the wrong subaru". His sodium increased from 118-128, and was placed on D5W to avoid overcorrection. He was started on a diet with fluid restriction 1000cc/hr. Psychiatry assessed patient and determined he had no capacity to leave AMA. Overnight his sodium normalized, was taken off D5 and was stable from ICU perspective. He did have asymptomatic bradycardia, and so will be transferred to Telemetry for further monitoring. Pertinent Lab Results: Sodium on admission 118 11/03/17 0330 sodium - 131 Assessment/Plan: Mr Denise is a 61M with a PMH of polysubstance abuse on Methadone 25mg daily, HTN brought in by police in altered state, found to have sodium of 118 on admission and confusion and aggression, given these findings thought to be symptomatic hyponatremia and so brought to ICU for hypertonic saline administration, now with sodium of 131 s/p D5W to prevent overcorrection. He stable and can be transferred to telemetry. Respiratory: stable -Stable on room air Infectious Disease: -Did have leukocytosis on admission trending down, afebrile, likely reactive -Will monitor off abx; cultures were drawn on admission -If febrile or symptomatic will start abx Cardiovascular/Circulation: stable -NSR+SB on monitor, blood pressures stable Hematological: stable -H/H 13.6/40.3 Metabolic: hypotonic hyponatremia -Sodium at 131, off d5w -Nephro recs appreciated -Tox positive for opiates, methadone, serum alcohol negative on admission -Restarted on his methadone dose 25mg, called [facility] in [place] and spoke with patients nurse who administers his dose; last dose was on the . Patient had claimed he was taking 45mg of methadone. -Per [place]PMP, patient has large amount of benzos prescribed (Lorazepam 2mg 120 pills for 30 days), will monitor for withdrawal Alimentary: -Regular diet, fluid restricted to 1000 cc Neurologic: -Intact, on 1:1 sitter -Occasionally agitated, but has not been on restraints today -Psych consult placed given bizarre patient behavior and patient following outpatient psychiatrist, appreciate recs low-dose antipsychotics if patient is agitated, QTC is within normal limits. Nephro: -Stable Restarted patient's home meds. DVT PPX IV access Full Code
--- NOTE | 2017-11-03 12:51 | PN- Nephrology ---
Assessment/Plan Nephrology Assessment: Impression :Hyponatremia. Etiology unclear. Although it is reasonably likely he may have SIADH his low admission U Osm should not have resulted in hyponatremia. (U Osm 218). With normal Osmotic diet (800 mOsm) he should have been able to handle 3.5 L (800/218) . It is possible his osmotic intake were significantly lower I suspect a significant part of his hyponatremia is due to inadequate solute intake. Would recheck U Osm U Na and always reassess when the clinical picture does not fit the presumed diagnosis (If U Osm is high (400+) in the setting of adequate volume explansion I discussed this in detail with the ICU team. Thanks Stuart Caraballo MD Suggestion: . Subjective Subjective: PT comfortable sodium stable Objective Vital Signs and I&Os M NAD 142/84 Lungs clear Cor RRR\ Abd soft Ext neg edema Results Pertinent Lab Results: 131 / 97 / 11 / 3.6 / 25 / 0.7
[2017-11-04] VITALS: BP 124/74
[2017-11-04 02:00] VITALS: BP 122/74
[2017-11-04 06:52] VITALS: BP 152/96
[2017-11-04 08:04] LABS: ABSOLUTE BASOPHIL COUNT 0 /CUMM (0.0-0.2); ABSOLUTE EOSINOPHIL COUNT 0.1 /CUMM (0.0-0.7); ABSOLUTE GRANULOCYTE CT 9.4 /CUMM (1.4-6.5); ABSOLUTE LYMPH COUNT 1.9 /CUMM (1.2-3.4); ABSOLUTE MONOCYTE COUNT 1.2 /CUMM (0.10-0.60); BASOPHIL % 0.4 % (0.0-2.0); EOSINOPHIL % 0.6 % (0-5); GRANULOCYTE % 74.5 % (42.2-75.2); HEMATOCRIT 38.1 % (42-52); MEAN CORPUSCULAR HGB 30.6 PG (27.0-31.0); MEAN CORPUSCULAR HGB CONC 34.1 G/DL (33.0-37.0); MEAN CORPUSCULAR VOLUME 89.6 FL (80.0-94.0); MEAN PLATELET VOLUME 8.3 FL (7.4-10.4); PLATELET COUNT 290 /CUMM (130-400); RBC DISTRIBUTION WIDTH 13.5 % (11.5-14.5); RED BLOOD CELL CT 4.25 /CUMM (4.70-6.10); WHITE BLOOD CELL COUNT 12.7 /CUMM (4.8-10.8)
--- NOTE | 2017-11-04 08:48 | PN- Housestaff ---
Renuka Hernandez 11/04/17 0848: Subjective Follow-up For: Hyponatremia s/p hypertonic saline admin Opioid dependence on methadone Subjective: Afebrile overnight. Patient is seen and examined this morning. Patient is sitting up in the bedside chair and states he had a slight feeling of nausea this morning but otherwise is feeling fine today. Patient denies any chest pain, shortness of breath, fevers, chills, and fatigue. Review of Systems Constitutional: Reports: see HPI. Objective Last 24 Hrs of Vital Signs/I&O Vital Signs Date Time Temp Pulse Resp B/P B/P Pulse O2 O2 Flow FiO2 Mean Ox Delivery Rate 11/04 0811 61 146/88 11/04 0810 61 146/88 11/04 0652 97.5 53 98 152/96 18 Room Air 11/04 0200 98.1 50 16 122/74 11/04 0000 98.4 50 16 124/74 11/03 2345 98.1 56 18 132/86 98 Room Air 11/03 2200 98.4 60 16 128/76 11/03 2000 98.4 60 16 128/76 11/03 1348 98.4 60 16 128/76 98 Room Air 11/03 1200 98.1 70 20 142/84 Intake & Output 11/04 1600 11/04 0800 11/04 0000 Intake Total 240 240 Output Total Balance 240 240 Intake, Oral 240 240 Patient 197 lb Weight Physical Exam General Appearance: Alert, Oriented X3, Cooperative, No Acute Distress Skin: No Rashes, No Breakdown HEENT: Atraumatic Neck: Supple, No JVD Cardiovascular: Regular Rate, Normal S1, Normal S2 Lungs: Clear to Auscultation Abdomen: Soft, No Tenderness Extremities: No Edema, Normal Pulses Assessment/Plan Assessment: 61M with a PMH of polysubstance abuse on Methadone 25mg daily, HTN brought in by police in altered state, found to have sodium of 118 on admission and confusion and aggression, given these findings thought to be symptomatic hyponatremia and so brought to ICU for hypertonic saline administration, now with sodium of 131 s /p D5W to prevent overcorrection. He stable and can be transferred to telemetry. Infectious Disease: -Did have leukocytosis on admission trending down, afebrile, likely reactive -Will monitor off abx; cultures were drawn on admission -If febrile or symptomatic will start abx Metabolic: hypotonic hyponatremia -Sodium at 132, off d5w -Nephro recs appreciated -Tox positive for opiates, methadone, serum alcohol negative on admission -Restarted on his methadone dose 25mg, called [facility] in [place] and spoke with patients nurse who administers his dose; last dose was on the 12th. Patient had claimed he was taking 45mg of methadone. -Per [place], patient has large amount of benzos prescribed (Lorazepam 2mg 120 pills for 30 days), will monitor for withdrawal Alimentary: -Regular diet, fluid restricted to 1000 cc Neurologic: -Intact, on 1:1 sitter -Occasionally agitated, but has not been on restraints today -Psych consult placed given bizarre patient behavior and patient following outpatient psychiatrist, appreciate recs low-dose antipsychotics if patient is agitated, QTC is within normal limits. DVT PPX IV access Full Code Problem List: 1. Hyponatremia 2. Altered mental status Pain Ratin Pain Location: na Pain Goal: Remain pain free Pain Plan: na Tomorrow's Labs & Rationales: routine Escobar Caro MD 11/04/17 0944: Attending MD Review Statement Attending Statement Attending Statement: examined this patient, discuss w/resident/PA/APPLICATION ARCHITECT, agreed w/resident/PA/APPLICATION ARCHITECT, discussed with family, reviewed EMR data (avail), discussed with nursing, discussed with case mgmt, reviewed images, amended to note Attending Assessment/Plan: Escobar Johnson M.D. have examined this patient, reviewed available EMR data, personally reviewed images, discussed with resident/PA/APPLICATION ARCHITECT, discussed management plan with housestaff and nursing staff, discussed managment plan all of healthcare providers, discussed management plan with patient and/or family, agreed with resident/PA/APPLICATION ARCHITECT. The past history and parts of the chart have been autopopulated. Impression 61 year old man * hyponatremia - unclear etiology, concern for medication induced (bupropion) vs. SIADH * depression * htn * history of opiate dependence - methadone program Plan -cxr unremarkable -mild leukocytosis improved -tmax 98.4 -cultures are negative -currently not on antibiotics -will monitor -monitor hemodynamics -nephrology appreciated -1000cc fluid restriction -s/p hypertonic saline -psychiatry appreciated -patient is not to leave AMA per psychiatry -continue methadone DVT prophylaxis at all times
[2017-11-04 15:00] VITALS: BP 118/62
[2017-11-04 22:00] VITALS: BP 128/90
[2017-11-05 06:43] VITALS: BP 124/70
--- NOTE | 2017-11-05 07:16 | PN- Housestaff ---
Renuka Hernandez 11/05/17 0716: Subjective Follow-up For: Hyponatremia s/p hypertonic saline admin Opioid dependence on methadone Subjective: Afebrile overnight. Patient is seen and examined today. Patient complains of the persistent abdominal pains from yesterday. Patient states his abdominal pain is located lower down and points to his suprapubic area. Patient denies any dysuria , urgency, or frequency. Patient does reports some nausea, usually before meals. Patient has been responding well to Pepcid for his abdominal complaints. Patient otherwise states he would like to receive more water and refuses the fluid restriction. Review of Systems Constitutional: Reports: see HPI. Objective Last 24 Hrs of Vital Signs/I&O Vital Signs Date Time Temp Pulse Resp B/P B/P Pulse O2 O2 Flow FiO2 Mean Ox Delivery Rate 11/05 0845 65 128/84 11/05 0845 65 128/84 11/05 0643 98.6 52 19 124/70 96 11/04 2200 98.8 63 18 128/90 99 11/04 1500 98.5 55 18 118/62 96 Room Air Intake & Output 11/05 1600 11/05 0800 11/05 0000 Intake Total 230 Output Total Balance 230 Intake, Oral 230 Patient 198 lb Weight Physical Exam General Appearance: Alert, Oriented X3, Cooperative, No Acute Distress Skin: No Rashes HEENT: Atraumatic Neck: Supple, No JVD Cardiovascular: Regular Rate, Normal S1, Normal S2 Lungs: Clear to Auscultation Abdomen: Soft, mild tenderness elicited in the lower quadrants Neurological: Normal Speech Extremities: No Edema, Normal Pulses Assessment/Plan Assessment: 61M with a PMH of polysubstance abuse on Methadone 25mg daily, HTN brought in by police in altered state, found to have sodium of 118 on admission and confusion and aggression, given these findings thought to be symptomatic hyponatremia and so brought to ICU for hypertonic saline administration, now with sodium of 131 s /p D5W to prevent overcorrection. He stable and can be transferred to telemetry. Infectious Disease: -Did have leukocytosis on admission trending down, afebrile, likely reactive -Will monitor off abx; cultures were drawn on admission; no growths as of yet -If febrile or symptomatic will start abx Metabolic: hypotonic hyponatremia -Sodium at 132, off d5w -Nephro recs appreciated -Tox positive for opiates, methadone, serum alcohol negative on admission -Restarted on his methadone dose 25mg, called [facility] in [place] and spoke with patients nurse who administers his dose; last dose was on the . Patient had claimed he was taking 45mg of methadone. -Per [place], patient has large amount of benzos prescribed (Lorazepam 2mg 120 pills for 30 days), will monitor for withdrawal Alimentary: -Regular diet, fluid restricted to 1000 cc; dc'd fluid restriction 11/05 Neurologic: -Intact, on 1:1 sitter; dc'd sitter -Occasionally agitated, but has not been on restraints today -Psych consult placed given bizarre patient behavior and patient following outpatient psychiatrist, appreciate recs low-dose antipsychotics if patient is agitated, QTC is within normal limits. DVT PPX IV access Full Code Problem List: 1. Hyponatremia 2. Altered mental status Pain Ratin Pain Location: abdomen, lower Pain Goal: Remain pain free Pain Plan: prn meds Tomorrow's Labs & Rationales: routine Elias Bob MD 11/05/17 1338: Attending MD Review Statement Attending Statement Attending MD Statement: examined this patient, discuss w/resident/PA/GRAPHIC PRODUCTION ARTIST, agreed w/resident/PA/GRAPHIC PRODUCTION ARTIST, reviewed EMR data (avail) Attending Assessment/Plan: Continue current management, monitor sodium, nephrology and psychiatry consults, continue home meds, DVT PPx
[2017-11-05 08:26] LABS: ABSOLUTE BASOPHIL COUNT 0 /CUMM (0.0-0.2); ABSOLUTE EOSINOPHIL COUNT 0 /CUMM (0.0-0.7); ABSOLUTE GRANULOCYTE CT 9.8 /CUMM (1.4-6.5); ABSOLUTE LYMPH COUNT 1.9 /CUMM (1.2-3.4); ABSOLUTE MONOCYTE COUNT 1.3 /CUMM (0.10-0.60); BASOPHIL % 0.3 % (0.0-2.0); EOSINOPHIL % 0.3 % (0-5); GRANULOCYTE % 74.7 % (42.2-75.2); HEMATOCRIT 36.7 % (42-52); MEAN CORPUSCULAR HGB 30.7 PG (27.0-31.0); MEAN CORPUSCULAR HGB CONC 33.9 G/DL (33.0-37.0); MEAN CORPUSCULAR VOLUME 90.5 FL (80.0-94.0); MEAN PLATELET VOLUME 8.4 FL (7.4-10.4); PLATELET COUNT 270 /CUMM (130-400); RBC DISTRIBUTION WIDTH 13.4 % (11.5-14.5); RED BLOOD CELL CT 4.06 /CUMM (4.70-6.10); WHITE BLOOD CELL COUNT 13.1 /CUMM (4.8-10.8)
[2017-11-05 14:54] VITALS: BP 130/80
[2017-11-05 21:48] VITALS: BP 130/70
[2017-11-06 06:52] VITALS: BP 122/80
--- NOTE | 2017-11-06 07:38 | PN- Housestaff ---
Renuka Hernandez 11/06/17 0738: Subjective Follow-up For: Hyponatremia s/p hypertonic saline admin Opioid dependence on methadone Subjective: Afebrile overnight. Patient is seen and examined this morning. Patient states he is feeling much better today and is ready to go home. Patient has been ambulating without difficulty. Patient also reports his abdominal pain has resolved from prior. Patient deniesa any n/v, diarrhea, chest pain, and shortness of breath. Patient is adamant he would like to go home today. Review of Systems Constitutional: Reports: see HPI. Objective Last 24 Hrs of Vital Signs/I&O Vital Signs Date Time Temp Pulse Resp B/P B/P Pulse O2 O2 Flow FiO2 Mean Ox Delivery Rate 11/06 0806 65 138/84 11/06 0806 65 138/84 11/06 0652 98.5 48 18 122/80 97 Room Air 11/05 2148 98.8 55 16 130/70 98 Room Air 11/05 1454 97.7 63 16 130/80 97 Room Air 11/05 0845 65 128/84 11/05 0845 65 128/84 Intake & Output 11/06 1600 11/06 0800 11/06 0000 Intake Total 400 Output Total Balance 400 Intake, Oral 400 Patient 196 lb Weight Physical Exam General Appearance: Alert, Oriented X3, Cooperative, No Acute Distress Skin: No Rashes, No Breakdown HEENT: Atraumatic Neck: Supple, No JVD Cardiovascular: Regular Rate, Normal S1, Normal S2 Lungs: Clear to Auscultation Abdomen: Soft, No Tenderness Neurological: Normal Speech Extremities: No Edema, Normal Pulses Assessment/Plan Assessment: 61 YO male with a PMH of polysubstance abuse on Methadone 25mg daily, HTN brought in by police in altered state, found to have sodium of 118 on admission and confusion and aggression, given these findings thought to be symptomatic hyponatremia and so brought to ICU for hypertonic saline administration, now with sodium of 131 s/p D5W to prevent overcorrection. He stable and can be transferred to telemetry. Infectious Disease: -Did have leukocytosis on admission trending down, afebrile, likely reactive -Will monitor off abx; cultures were drawn on admission; no growths as of yet Metabolic: hypotonic hyponatremia -Sodium at 133, off d5w -Nephro recs appreciated -Tox positive for opiates, methadone, serum alcohol negative on admission -Restarted on his methadone dose 25mg, called [facility] in [place] and spoke with patients nurse who administers his dose; last dose was on the . Patient had claimed he was taking 45mg of methadone. -Per [place], patient has large amount of benzos prescribed (Lorazepam 2mg 120 pills for 30 days), will monitor for withdrawal Alimentary: -Regular diet, fluid restricted to 1000 cc; dc'd fluid restriction 11/05 Neurologic: -Intact, on 1:1 sitter; dc'd sitter -Occasionally agitated, but has not been on restraints today -Psych consult placed given bizarre patient behavior and patient following outpatient psychiatrist, appreciate recs their assessment on 11/02/17 and that can give low-dose antipsychotics if patient is agitated, QTC is within normal limits; -Psych reassesed patient on 11/06 and determined no acute psychiatric findings at the present moment. DVT PPX IV access Full Code Problem List: 1. Hyponatremia 2. Altered mental status Pain Ratin Pain Location: na Pain Goal: Remain pain free Pain Plan: na Tomorrow's Labs & Rationales: routine Elias Bob MD 11/06/17 1049: Attending MD Review Statement Attending Statement Attending MD Statement: examined this patient, discuss w/resident/PA/PATENT LAWYER, agreed w/resident/PA/PATENT LAWYER, reviewed EMR data (avail) Attending Assessment/Plan: 61M PMH HTN, history of drug abuse on Methadone, admitted with hyponatremia and altered mental status. Sodium has steadily improved initially with fluid restriction and food, now off of fluid restriction and doing well. Patient is very eager to go home. He is not confused and has insight, A&Ox3. He has no physical complaints. On discussion of discharge planning, he reports he left his car at the [employer] parking lot, and will have to go find it. Plans will be made to have a taxi take him to his home, and he and his brother will go look for his car later on. He feels safe with this discharge plan. Plan - Stable for discharge - Team spoke with psychiatry who report no further psychiatric intervention at this time and will be seen as outpatient - Continue home medications - Outpatient PCP follow up for sodium
[2017-11-06 08:06] VITALS: BP 138/84
[2017-11-06 08:34] LABS: ABSOLUTE BASOPHIL COUNT 0.1 /CUMM (0.0-0.2); ABSOLUTE EOSINOPHIL COUNT 0.1 /CUMM (0.0-0.7); ABSOLUTE GRANULOCYTE CT 9.9 /CUMM (1.4-6.5); ABSOLUTE LYMPH COUNT 2.3 /CUMM (1.2-3.4); ABSOLUTE MONOCYTE COUNT 1.2 /CUMM (0.10-0.60); BASOPHIL % 0.4 % (0.0-2.0); EOSINOPHIL % 0.7 % (0-5); GRANULOCYTE % 72.8 % (42.2-75.2); HEMATOCRIT 39.1 % (42-52); MEAN CORPUSCULAR HGB 30.5 PG (27.0-31.0); MEAN CORPUSCULAR HGB CONC 33.8 G/DL (33.0-37.0); RBC DISTRIBUTION WIDTH 13.5 % (11.5-14.5); RED BLOOD CELL CT 4.35 /CUMM (4.70-6.10); WHITE BLOOD CELL COUNT 13.6 /CUMM (4.8-10.8)
[2017-11-06 09:08] LABS: PLATELET COUNT 247 /CUMM (130-400)
--- NOTE | 2017-11-06 10:13 | Patient Discharge Instructions ---
Discharge Instructions General Discharge Information You were seen/treated for: Low Sodium Levels Altered Mental Status You had these procedures: CXR Head CT Watch for these problems: If you experience any worsening confusion, dizziness, lightheadedness, fevers, chills, and or fatigue please follow up with your PCP. Special Instructions: Please follow up with a PCP within one week. Please follow up with a Pump Room Operator within one week. Please follow up with a Psychiatrist if you experience any issues with anxiety or agitation. Please continue to take your home medications. Diet Continue normal diet: Yes Recommended Diet: Regular Activity Full Activity/No Limits: No Activity Self Limited: Yes Acute Coronary Syndrome Inclusion Criteria At DC or during hospital stay patient has or had the following: ACS DIAGNOSIS No Discharge Core Measures Meds if any: Prescribed or Continued at Discharge Meds if any: NOT Prescribed or Continued at Discharge Congestive Heart Failure Inclusion Criteria At DC or during hospital stay patient has or had the following: CHF DIAGNOSIS No Discharge Core Measures Meds if any: Prescribed or Continued at Discharge Meds if any: NOT Prescribed or Continued at Discharge Cerebrovascular accident Inclusion Criteria At DC or during hospital stay patient has or had the following: CVA/TIA Diagnosis No Discharge Core Measures Meds if any: Prescribed or Continued at Discharge Meds if any: NOT Prescribed or Continued at Discharge Venous thromboembolism Inclusion Criteria VTE Diagnosis No VTE Type NONE VTE Confirmed by (Test) NONE Discharge Core Measures - Per Current guidelines, there needs to be overlap - treatment for the first 5 days of Warfarin therapy. - If discharged on Warfarin prior to 5 days of - overlap therapy, the patient will need to be - assessed for post discharge needs including - *Post discharge parental anticoagulation - *Warfarin and/or parental anticoagulation education - *Follow up date to check INR post discharge At least 5 days overlap therapy as Inpatient No Meds if any: Prescribed or Continued at Discharge Note: Overlap Therapy is Warfarin and Anticoagulant Meds if any: NOT Prescribed or Continued at Discharge
--- NOTE | 2017-11-06 10:13 | Discharge Summary ---
Visit Information Visit Dates Admission Date: 11/01/17 Discharge Date: 11/06/17 Hospital Course Course Attending Physician: Elias Bob MD Primary Care Physician: Lauryn LUNDBERG, [facility] Course: 61-year-old gentleman past medical history significant for hypertension, substance abuse disorder on methadone brought in altered by police. In ED was found to be hyponatremic to 118 with leukocytosis of 17.5. U tox significant for opioids and methadone. CT head shows no acute intracranial hemorrhage or abnormal extra-axial collection. No intracranial mass effect or midline shift. Chest x-ray unremarkable 1. Hyponatremia and Altered Mental Status -Patient was admitted to ICU initially for hypertonic saline administration given altered mental status and low sodium, however patient already received fluid in the ED. Overnight patient was agitated, attempted to leave; order #7 was called and patient was escorted back to bed, 1:1 sitter ordered. Was in restraints in ED, off restraints HD#2. Patient has poor insight into diagnosis, continued to ask why he is here and saying he wanted to leave. States that he was in [facility] in the beginning of the week for "appendicitis" although did not have an operation, was "unable to eat or drink anything" for two days and was discharged on Sunday without follow up or medications. States that prior to admission he was in a hotel with his girlfriend and apparently she wanted pizza, so he went out in his boxers without shoes on to get pizza. Unsure as to why police found him rummaging through cars, states that "that never happened". However, Per discussion with nursing, patient states that "I was not rummaging through cars, I just got into the wrong subaru". His sodium increased from 118-128, and was placed on D5W to avoid overcorrection. He was started on a diet with fluid restriction 1000cc/hr. Psychiatry assessed patient and determined he had no capacity to leave AMA. Overnight his sodium normalized, was taken off D5 and was stable from ICU perspective. He did have asymptomatic bradycardia, and was transferred to Telemetry for further monitoring. Patient's sodium improved to 133 on 11/06. Patient was stable and ready to discharge. Patient to follow up with his PCP and nephrology as an outpatient Allergies: Coded Allergies: No Known Allergies (09/13/18) Disposition Summary Disposition Principal Diagnosis: Hyponatremia Altered Mental Status Additional Diagnosis: Hx. Substance Abuse Disorder Discharge Disposition: home or self care Discharge Instructions General Discharge Information Code Status: Full Code Patient's Diet: Regular diet Patient's Activity: Ad rachael Follow-Up Instructions/Appts: Please follow up with a PCP within one week. Please continue to take your home medications. Medications at Discharge Discharge Medications: Continue taking these medications: Metoprolol Succ XL (Toprol XL) 100 MG TAB.ER.24H 1 Tablet ORAL DAILY Comments: Last Taken: 11/06/17 Time: 08:06 Simethicone (Gas-X) 125 MG CAPSULE 1 Capsule ORAL As Directed as needed for GAS Comments: NOT GIVEN IN THE HOSPITAL Finasteride (Finasteride) 5 MG TABLET 1 Tablet ORAL DAILY Comments: NOT GIVEN IN THE HOSPITAL. PT RECIEVED FLOMAX 11/06/17 @08:06 Bupropion HCl (Bupropion XL) 300 MG TAB.ER.24H 1 Tablet ORAL DAILY Comments: Last Taken: 11/06/17 Time: 08:06 Naproxen Sodium (Aleve) 220 MG TABLET Tablet ORAL As Directed Comments: NOT GIVEN IN THE HOSPITAL Aspirin/Acetaminophen/Caffeine (Excedrin Extra Strength Caplet) 250 MG-250 MG-65 MG TABLET Capsule ORAL As Directed Comments: NOT GIVEN IN THE HOSPITAL Tamsulosin HCl (Flomax) 0.4 MG CAP.ER.24H 1 Capsule ORAL DAILY Comments: Last Taken: 11/06/17 Time: 08:06 Copies To: Lauryn LUNDBERG,Caleb Montelongo MD Review Statement Documenting Attending: Elias Bob MD
--- NOTE | 2017-11-06 10:35 | PN- Psychiatry ---
Assessment/Plan Impression: Pt no longer delirious. Alert and oriented x 3, gait steady. Able to recount events prior to admission. Medical team has cleared him for discharge. Not suicidal, homicidal, psychotic or gravely disabled. Pt states that he lives with his brother but that his brother has not been to visit them as "we don't get along". Anxious for discharge as "I want to have a good shower and shave". Medical team concerned about psychosocial situation. S/B Dr Santos earlier in admission who recommended getting collateral history. Suggestion: - No acute psychiatric findings currently - Suggets pursue collateral from PCP/brother prior to discharge. PLease contact us if we can be of any further assistance. Subjective Subjective: "I just want to go home, I have been here since " Objective Last 24 Hrs of Vital Signs/I&O Vital Signs Date Time Temp Pulse Resp B/P B/P Pulse O2 O2 Flow FiO2 Mean Ox Delivery Rate 11/06 0806 65 138/84 11/06 0806 65 138/84 11/06 0652 98.5 48 18 122/80 97 Room Air 11/05 2148 98.8 55 16 130/70 98 Room Air 11/05 1454 97.7 63 16 130/80 97 Room Air Intake & Output 11/06 1600 11/06 0800 11/06 0000 Intake Total 500 400 Output Total Balance 500 400 Intake, Oral 500 400 Patient 88.904 kg Weight
== END 2017-11-06 11:18 | DRG 426 ==
LOC: ERH 15:39 → CRI 17:45 → 1NO 17:45 → ERHI 17:45 → ENRESERV 19:33 → ENTRNSPT 20:26 → EDTRNSPTSTS 20:29 → CRI 20:42 → CMPTRNSPT 20:51 → CRI 21:21 → ENTRNSPT 11-03 11:57 → 1NO 11-03 12:35 → CMPTRNSPT 11-03 12:38 → 1NO 11-05 07:34 → ENPENDDIS 11-06 10:37 → 1NO 11-06 11:18
PROVIDERS: Internal Medicine; Internal Medicine Adolescent Medicine; Physical Medicine & Rehabilitation; Student in an Organized Health Care Education/Training Program
DX: E87.1 Hypo-osmolality and hyponatremia (principal); I10 Essential (primary) hypertension; F10.10 Alcohol abuse, uncomplicated; Y90.0 Blood alcohol level of less than 20 mg/100 ml; E66.9 Obesity, unspecified; Z68.30 Body mass index [BMI] 30.0-30.9, adult; E80.6 Other disorders of bilirubin metabolism; D72.828 Other elevated white blood cell count; F05 Delirium due to known physiological condition; G89.29 Other chronic pain; F11.20 Opioid dependence, uncomplicated; F32.9 Major depressive disorder, single episode, unspecified; T50.3X5A Adverse effect of electrolytic, caloric and water-balance agents, initial encounter; Y92.239 Unspecified place in hospital as the place of occurrence of the external cause
CPT/HCPCS: 1NP; 84133; 84300; CCU; 36415; 36592; 71045; 80307; 81001; 82436; 82570; 87040; 87086; 93005; 93010; G0480; J1200; J7060; J7508; Q2036